=== PATIENT | male | born 1960 ===

== ENCOUNTER 2023-02-22 09:19 | Inpatient (IN) | payer OTHER ==
[2023-02-22] MEDS ORDERED: Morphine 4 MG/ML VIAL ONE (09:54)
[2023-02-22 10:04] LABS: #Eosinphils 0.2 thou/uL (0.0-0.7); #Neutrophils 4.6 thou/uL (1.40-6.50); %Basophils 0.5 % (0.0-1.0); %Eosinophils 2.5 % (0.0-10.0); %Lymphocytes 27.9 % (21.0-51.0); %Monocytes 12.3 % (0.0-10.0); %Neutrophils 56.6 % (42.0-75.0); Hematocrit 48.2 % (42.0-52.0); Mean Corpuscular HGB CONC 33.2 g/dL (32.0-36.0); Mean Corpuscular Hemoglobin 29.5 pg (27.0-31.0); Mean Corpuscular Volume 88.9 fl (78.0-98.0); Mean Platelet Volume 10.1 fL (7.4-10.4); Platelet Count 292 10x3/uL (130-400); RBC Distribution Width 13.2 % (11.5-14.5); Red Blood Cell (RBC) Count 5.42 mill/uL (4.70-6.10); White Blood Cell (WBC) Count 8.2 10x3/uL (4.8-10.8)
[2023-02-22 10:18] LABS: ALT (SGPT) 57 U/L (8-55); AST (SGOT) 29 U/L (5-34); Albumin 4.6 g/dL (3.4-4.8); Alkaline Phosphatase 53 U/L (40-110); Anion Gap 16 mmol/L (10-20); BUN (Urea Nitrogen) 16 mg/dL (8.4-25.7); Bilirubin, Total 0.3 mg/dL (0.2-1.2); Calc. Creatinine Clearance 0 mL/min (70-130); Calcium 10.1 mg/dL (7.8-10.44); Carbon Dioxide 21 mmol/L (23-31); Chloride 104 mmol/L (98-107); Estimated GFR 66; Globulin 3.1 g/dL (2.4-3.5); Glucose 87 mg/dL (80-115); Potassium 4.2 mmol/L (3.5-5.1); Protein, Total 7.7 g/dL (5.8-8.1); Sodium 137 mmol/L (136-145)
[2023-02-22 10:28] LABS: Troponin I 4.167 ng/mL (< 0.028)
[2023-02-22] MEDS ORDERED: Aspirin Chewable 81 MG TAB ONE (10:29)
[2023-02-22] MEDS ORDERED: Ondansetron ODT 4 MG TAB PO PRN (12:20)
[2023-02-22] MEDS ORDERED: Ondansetron PF 4 MG/2 ML Vial IVP PRN (12:20)
[2023-02-22] MEDS ORDERED: Acetaminophen 325 MG TAB PO PRN (12:20)
[2023-02-22] MEDS ORDERED: Communication Order-Pharmacy FS SCH ×2 (12:20→17:00)
[2023-02-22] MEDS ORDERED: Nitroglycerin 0.4 MG TAB (25 Tab Bottle) SL PRN (12:20)
[2023-02-22] MEDS ORDERED: Electrolyte Replacement Protocol 1 EACH FS SCH (12:30)
[2023-02-22] MEDS ORDERED: Morphine 2 MG/ML VIAL SLOW IVP PRN (12:48)
[2023-02-22 12:50] VITALS: BMI 29.8
[2023-02-22 13:19] LABS: Troponin I 3.905 ng/mL (< 0.028)
[2023-02-22 16:21] LABS: Troponin I 3.827 ng/mL (< 0.028)
[2023-02-22] MEDS ORDERED: Nitroglycerin 2% Ointment 1 INCH/1 GM Packet TOP PRN (19:20)
[2023-02-22] MEDS: Atorvastatin Calcium 40 MG TAB PO SCH (21:42)
[2023-02-23] MEDS ORDERED: Sodium Chloride 0.9% 500 ML IV SCH ×2 (00:01→16:15)
[2023-02-23 04:49] LABS: #Eosinphils 0.3 thou/uL (0.0-0.7); #Monocytes 0.9 thou/uL (0.11-0.59); #Neutrophils 4.4 thou/uL (1.40-6.50); %Basophils 0.5 % (0.0-1.0); %Eosinophils 3.6 % (0.0-10.0); %Lymphocytes 27.3 % (21.0-51.0); %Monocytes 11.7 % (0.0-10.0); %Neutrophils 56.4 % (42.0-75.0); Hemoglobin 15.6 g/dL (14.0-18.0); Mean Corpuscular HGB CONC 33.2 g/dL (32.0-36.0); Mean Corpuscular Hemoglobin 29.3 pg (27.0-31.0); Mean Corpuscular Volume 88.2 fl (78.0-98.0); Mean Platelet Volume 10.2 fL (7.4-10.4); Platelet Count 267 10x3/uL (130-400); RBC Distribution Width 13.2 % (11.5-14.5); Red Blood Cell (RBC) Count 5.33 mill/uL (4.70-6.10); White Blood Cell (WBC) Count 7.8 10x3/uL (4.8-10.8)
[2023-02-23 04:54] LABS: Hemoglobin A1c 5.4 % (4.0-6.0)
[2023-02-23 05:13] LABS: Anion Gap 12 mmol/L (10-20); BUN (Urea Nitrogen) 13 mg/dL (8.4-25.7); Calc. Creatinine Clearance 107 mL/min (70-130); Calcium 9.6 mg/dL (7.8-10.44); Carbon Dioxide 24 mmol/L (23-31); Chloride 106 mmol/L (98-107); Cholesterol 178 mg/dl (< 200 Desired); Estimated GFR 92; Glucose 92 mg/dL (80-115); HDL Cholesterol 45 mg/dL (>60 Neg Risk); LDL Cholesterol, Calculated 108 mg/dL; Magnesium 2.2 mg/dL (1.6-2.6); Sodium 138 mmol/L (136-145); Triglycerides 126 mg/dL (Less than 150)
[2023-02-23] MEDS ORDERED: Iopamidol 370 76% 100 ML VIAL ONE (10:21)
[2023-02-23] MEDS ORDERED: Lidocaine 1% (PF) 30 ML VIAL ONE (14:42)
[2023-02-23] MEDS ORDERED: Midazolam HCl 2 mg/2 ml Vial ONE (15:44)
[2023-02-23] MEDS ORDERED: fentaNYL 50 mcg/mL 1 mL Vial ONE (15:44)
[2023-02-23] MEDS ORDERED: Heparin 10,000 UNITS/ 10 ML VIAL ONE (15:46)
[2023-02-23] MEDS ORDERED: Adenosine 6 MG/2 ML VIAL ONE (15:46)
[2023-02-23] MEDS ORDERED: Acetaminophen/Codeine 30-300mg Tablet PO PRN (16:09)
[2023-02-23] MEDS ORDERED: Sodium Chloride 0.9% 200 ML IV PRN (16:09)
[2023-02-23] MEDS ORDERED: Communication Order-Pharmacy FS SCH (18:14)
[2023-02-23] MEDS ORDERED: Diazepam 5 MG TAB PO PRN (18:14)
[2023-02-23] MEDS: Atorvastatin Calcium 40 MG TAB PO SCH (20:36)
[2023-02-24 07:59] LABS: #Eosinphils 0.3 thou/uL (0.0-0.7); #Monocytes 0.7 thou/uL (0.11-0.59); #Neutrophils 5.6 thou/uL (1.40-6.50); %Basophils 0.4 % (0.0-1.0); %Lymphocytes 21.1 % (21.0-51.0); %Neutrophils 67.4 % (42.0-75.0); Hematocrit 47.6 % (42.0-52.0); Hemoglobin 15.4 g/dL (14.0-18.0); Mean Corpuscular HGB CONC 32.4 g/dL (32.0-36.0); Mean Corpuscular Hemoglobin 29.1 pg (27.0-31.0); Mean Platelet Volume 9.6 fL (7.4-10.4); Platelet Count 270 10x3/uL (130-400); RBC Distribution Width 13.2 % (11.5-14.5); Red Blood Cell (RBC) Count 5.29 mill/uL (4.70-6.10); White Blood Cell (WBC) Count 8.3 10x3/uL (4.8-10.8)
[2023-02-24 08:28] LABS: Anion Gap 12 mmol/L (10-20); BUN (Urea Nitrogen) 13 mg/dL (8.4-25.7); Calc. Creatinine Clearance 91 mL/min (70-130); Calcium 9.4 mg/dL (7.8-10.44); Carbon Dioxide 23 mmol/L (23-31); Chloride 108 mmol/L (98-107); Estimated GFR 76; Glucose 169 mg/dL (80-115); Potassium 3.6 mmol/L (3.5-5.1); Sodium 139 mmol/L (136-145)
[2023-02-24] MEDS: Atorvastatin Calcium 40 MG TAB PO SCH (20:13)
[2023-02-25 04:51] LABS: #Basophils 0.1 thou/uL (0.0-0.2); #Eosinphils 0.3 thou/uL (0.0-0.7); #Monocytes 1.2 thou/uL (0.11-0.59); #Neutrophils 5.8 thou/uL (1.40-6.50); %Basophils 0.5 % (0.0-1.0); %Lymphocytes 21.3 % (21.0-51.0); %Monocytes 12.6 % (0.0-10.0); %Neutrophils 62.3 % (42.0-75.0); Hematocrit 47.8 % (42.0-52.0); Hemoglobin 15.5 g/dL (14.0-18.0); Mean Corpuscular HGB CONC 32.4 g/dL (32.0-36.0); Mean Corpuscular Volume 89.5 fl (78.0-98.0); Platelet Count 278 10x3/uL (130-400); RBC Distribution Width 13.2 % (11.5-14.5); Red Blood Cell (RBC) Count 5.34 mill/uL (4.70-6.10); White Blood Cell (WBC) Count 9.2 10x3/uL (4.8-10.8)
[2023-02-25 05:13] LABS: Anion Gap 11 mmol/L (10-20); BUN (Urea Nitrogen) 14 mg/dL (8.4-25.7); Carbon Dioxide 25 mmol/L (23-31); Chloride 109 mmol/L (98-107); Potassium 4.2 mmol/L (3.5-5.1); Sodium 141 mmol/L (136-145)
[2023-02-25 05:14] LABS: Calc. Creatinine Clearance 95 mL/min (70-130); Calcium 9.8 mg/dL (7.8-10.44); Estimated GFR 80; Glucose 106 mg/dL (80-115)
[2023-02-25] MEDS ORDERED: PHENYLEPHRINE-NS 100 MCG/ML 10 ML SYRINGE ONE (07:48)
[2023-02-25] MEDS ORDERED: Albumin 5% 500 ML ONE (07:48)
[2023-02-25] MEDS ORDERED: EPINEPHrine 1 MG/ML AMP ONE (07:48)
[2023-02-25] MEDS ORDERED: Bupivacaine PF 0.5% 30 ML VIAL ONE (07:48)
[2023-02-25] MEDS ORDERED: Dexamethasone 4 mg/ml Vial ONE (07:48)
[2023-02-25] MEDS ORDERED: Heparin 10,000 UNITS/1 ML VIAL 30,000 UNITS in Sodium Chloride 0.9% 1,000 ML FS SCH (09:00)
[2023-02-25] MEDS ORDERED: Midazolam HCl 2 mg/2 ml Vial ONE ×2 (09:05→09:14)
[2023-02-25] MEDS ORDERED: Sodium Chloride 0.9% 100 ML ONE (09:13)
[2023-02-25] MEDS ORDERED: CEFAZOLIN 2 GM VIAL ONE (09:13)
[2023-02-25] MEDS ORDERED: Fentanyl 250 MCG/5 ML VIAL ONE ×2 (09:14→10:03)
[2023-02-25] MEDS ORDERED: Vecuronium 10 MG VIAL ONE (09:28)
[2023-02-25] MEDS ORDERED: Papaverine 60 MG/2 ML VIAL ONE (09:28)
[2023-02-25] MEDS ORDERED: Protamine Sulfate 250 MG/25 ML VIAL ONE (09:28)
[2023-02-25] MEDS ORDERED: Heparin 5,000 UNITS/ML VIAL ONE (09:28)
[2023-02-25] MEDS ORDERED: Potassium Chloride 60 MEQ/30 ML VIAL ONE (09:28)
[2023-02-25] MEDS ORDERED: Thrombin 5000 UNITS/5 ML VIAL ONE (09:28)
[2023-02-25] MEDS ORDERED: Lidocaine 2% PF 100 mg/5 ml Syringe ONE (09:28)
[2023-02-25] MEDS ORDERED: Aminocaproic Acid 5 GM/20 ML VIAL ONE (09:28)
[2023-02-25] MEDS ORDERED: Esmolol 100 MG/10 ML VIAL ONE (09:28)
[2023-02-25] MEDS ORDERED: Sodium Bicarb 50 MEQ/50 ML VIAL ONE (09:28)
[2023-02-25] MEDS ORDERED: Vancomycin 1 GM VIAL ONE (09:28)
[2023-02-25] MEDS ORDERED: PROPOFOL 200 MG/20 ML VIAL ONE (09:28)
[2023-02-25] MEDS ORDERED: Calcium Chloride 1 GM/10 ML Abboject SYRINGE ONE (09:28)
[2023-02-25] MEDS ORDERED: Magnesium 5 GM/10 ML VIAL ONE (09:28)
[2023-02-25] MEDS ORDERED: Cardioplegic Soln 1,000 ML BAG ONE (09:28)
[2023-02-25] MEDS ORDERED: Heparin 30,000 units/30 ml VIAL ONE (09:28)
[2023-02-25] MEDS ORDERED: Metoprolol Tartrate 5 MG/5 ML VIAL ONE (09:28)
[2023-02-25] MEDS ORDERED: CEFAZOLIN 2 GM in Sodium Chloride 0.9% 100 ML IVPB SCH (10:00)
[2023-02-25] MEDS ORDERED: Magnesium 2 GM/50 ML(in water) 2 GM in Premix Bag 1 BAG IVPB SCH (13:01)
[2023-02-25] MEDS ORDERED: Bisacodyl 10 MG SUPP PR PRN (13:01)
[2023-02-25] MEDS ORDERED: Nitroglycerin 50 MG/250 ML BOT 250 ML IVPB PRN (13:01)
[2023-02-25] MEDS ORDERED: traMADol HCl 50 MG TAB PO PRN ×2 (13:01)
[2023-02-25] MEDS ORDERED: Ipratropium/Albuterol 3 ML NEB NEB PRN (13:01)
[2023-02-25] MEDS ORDERED: Hetastarch 6% 500 ML 500 ML IVPB PRN (13:01)
[2023-02-25] MEDS ORDERED: fentaNYL 50 mcg/mL 1 mL Vial SLOW IVP PRN ×2 (13:01)
[2023-02-25] MEDS ORDERED: Promethazine HCl 25 MG/ML VIAL IM PRN (13:01)
[2023-02-25] MEDS ORDERED: Acetaminophen 325 MG TAB PO PRN (13:01)
[2023-02-25] MEDS ORDERED: NOREPINEPHRINE 8 MG/250 ML-D5W 250 ML IVPB PRN (13:01)
[2023-02-25] MEDS ORDERED: Bisacodyl 5 MG TAB PO PRN (13:01)
[2023-02-25] MEDS ORDERED: Mag-Al 1200 mg/1200 mg/30 ML UDCUP PO PRN (13:01)
[2023-02-25] MEDS ORDERED: Morphine 2 MG/ML VIAL SLOW IVP PRN (13:01)
[2023-02-25] MEDS ORDERED: Guaifenesin DM 100-10/5 ML UDCUP PO PRN (13:01)
[2023-02-25] MEDS ORDERED: Potassium Chloride 20 MEQ/100 ML PREMIX BAG IVPB PRN (13:01)
[2023-02-25 13:04] LABS: Actual Bicarbonate (HCO3a) 20.5 mEq/L (22-28); Base Excess (BEa) -5.3 mEq/L (-2.0 to +3.0); CO2 Tension 40.8 mmHg (35.0-45.0); Calcium, Ionized (arterial) 1.17 mmol/L (1.12-1.30); Carboxyhemoglobin (COHb) 0.5 gm% (0.0-3.0); Hematocrit-ABG 39 % (42.0-52.0); Hemoglobin (Hb) 13.2 g/dL (14.0-18.0); O2 Tension (PaO2), arterial 81.2 mmHg (> 80.0); Potassium - ABG Lab 3.95 mmol/L (3.70-5.30); pH, Arterial 7.318 (7.35-7.45)
[2023-02-25 13:05] LABS: Puncture Site Arterial Line
[2023-02-25] MEDS ORDERED: Morphine 4 MG/ML VIAL ONE (13:29)
[2023-02-25 13:36] LABS: Mean Corpuscular HGB CONC 32.6 g/dL (32.0-36.0); Mean Corpuscular Hemoglobin 29.5 pg (27.0-31.0); Mean Corpuscular Volume 90.6 fl (78.0-98.0); Mean Platelet Volume 10.3 fL (7.4-10.4); Platelet Count 192 10x3/uL (130-400); RBC Distribution Width 13.3 % (11.5-14.5); Red Blood Cell (RBC) Count 4.13 mill/uL (4.70-6.10)
[2023-02-25 13:38] LABS: Delete Auto Diff?? YES; Hematocrit 37.4 % (42.0-52.0); Hemoglobin 12.2 g/dL (14.0-18.0); Manual Diff?? YES; White Blood Cell (WBC) Count 26.1 10x3/uL (4.8-10.8)
[2023-02-25] MEDS ORDERED: Dextrose 50% Abboject 50 ML SYRINGE SLOW IVP PRN (13:45)
[2023-02-25] MEDS ORDERED: Dextrose 5% in Water 1,000 ML IV PRN (13:45)
[2023-02-25] MEDS ORDERED: Glucagon 1 MG/ML KIT SC PRN (13:45)
[2023-02-25 13:50] LABS: INR-International Normal Ratio 1.3; Prothrombin Time 16.9 sec (12.0-14.7)
[2023-02-25 13:52] LABS: PTT 26.8 sec (22.9-36.1)
[2023-02-25 14:00] LABS: Band 15 % (5-11); Burr Cells SLIGHT = 2-5 cells HPF (0-1); CellaVision Operator ID LAB.KB; Lymphocytes 3 % (21-51); Monocytes 1 % (0-10); Neutrophil 81 % (42-75); Platelet Adequacy Comment Platelets Normal; Polychromasia SLIGHT = 2-3 cells HPF (0-2); Total Cell Count 100
[2023-02-25 14:02] LABS: Anion Gap 12 mmol/L (10-20); BUN (Urea Nitrogen) 10 mg/dL (8.4-25.7); Calc. Creatinine Clearance 116 mL/min (70-130); Calcium 8.3 mg/dL (7.8-10.44); Carbon Dioxide 20 mmol/L (23-31); Chloride 112 mmol/L (98-107); Estimated GFR 98; Glucose 165 mg/dL (80-115); Potassium 3.9 mmol/L (3.5-5.1); Sodium 140 mmol/L (136-145)
[2023-02-25] MEDS ORDERED: HEXTEND 6% LR 500ML 500 ML IVPB PRN (14:15)
[2023-02-25 14:16] LABS: Actual Bicarbonate (HCO3a) 19.4 mEq/L (22-28); Base Excess (BEa) -5.5 mEq/L (-2.0 to +3.0); CO2 Tension 35.9 mmHg (35.0-45.0); O2 Tension (PaO2), arterial 82.4 mmHg (> 80.0)
[2023-02-25 14:17] LABS: ALV-art Gradient 157.925 mmHg (0-20); Calcium, Ionized (arterial) 1.15 mmol/L (1.12-1.30); Carboxyhemoglobin (COHb) 0.4 gm% (0.0-3.0); Hematocrit-ABG 43 % (42.0-52.0); Hemoglobin (Hb) 14.5 g/dL (14.0-18.0); Potassium - ABG Lab 3.79 mmol/L (3.70-5.30); Puncture Site Arterial Line
[2023-02-25] MEDS: D5 1/2 NS w/20 mEq KCL 1,000 ML IV SCH (14:36)
[2023-02-25] MEDS: CEFAZOLIN 2 GM in Sodium Chloride 0.9% 100 ML IVPB SCH (17:08)
[2023-02-25] MEDS: Ketorolac Tromethamine 30 MG/ML VIAL IVP SCH ×2 (17:08→23:24)
[2023-02-25] MEDS: Insulin Regular 300 UNITS/3 ML VIAL SC PRN ×2 (17:09→21:34)
[2023-02-25 20:07] LABS: Hemoglobin 13.8 g/dL (14.0-18.0)
[2023-02-25 20:18] LABS: Potassium 4.2 mmol/L (3.5-5.1)
[2023-02-25] MEDS ORDERED: Famotidine/PF 20 mg/2ml Vial SLOW IVP SCH (21:00)
[2023-02-25] MEDS: Atorvastatin Calcium 40 MG TAB PO SCH (21:24)
[2023-02-25] MEDS: hydrALAZINE 20 MG/ML VIAL SLOW IVP PRN (21:24)
[2023-02-25] MEDS: Ondansetron PF 4 MG/2 ML Vial IVP PRN (21:24)
[2023-02-26] MEDS: CEFAZOLIN 2 GM in Sodium Chloride 0.9% 100 ML IVPB SCH ×2 (01:09→08:30)
[2023-02-26] MEDS: hydrALAZINE 20 MG/ML VIAL SLOW IVP PRN (03:45)
[2023-02-26 04:09] LABS: #Monocytes 1.6 thou/uL (0.11-0.59); %Basophils 0.1 % (0.0-1.0); %Lymphocytes 8.6 % (21.0-51.0); %Monocytes 9.5 % (0.0-10.0); %Neutrophils 81.3 % (42.0-75.0); Hematocrit 39.7 % (42.0-52.0); Hemoglobin 13.1 g/dL (14.0-18.0); Mean Corpuscular Hemoglobin 29.3 pg (27.0-31.0); Mean Corpuscular Volume 88.8 fl (78.0-98.0); Platelet Count 188 10x3/uL (130-400); RBC Distribution Width 13.4 % (11.5-14.5); Red Blood Cell (RBC) Count 4.47 mill/uL (4.70-6.10); White Blood Cell (WBC) Count 17.2 10x3/uL (4.8-10.8)
[2023-02-26 04:34] LABS: Anion Gap 8 mmol/L (10-20); BUN (Urea Nitrogen) 9 mg/dL (8.4-25.7); Calc. Creatinine Clearance 116 mL/min (70-130); Calcium 8.2 mg/dL (7.8-10.44); Carbon Dioxide 25 mmol/L (23-31); Chloride 108 mmol/L (98-107); Estimated GFR 98; Glucose 121 mg/dL (80-115); Potassium 3.9 mmol/L (3.5-5.1); Sodium 137 mmol/L (136-145)
[2023-02-26] MEDS: Ketorolac Tromethamine 30 MG/ML VIAL IVP SCH ×4 (05:17→23:30)
[2023-02-26] MEDS: Ondansetron PF 4 MG/2 ML Vial IVP PRN (05:27)
[2023-02-26] MEDS: Aspirin 325 MG TAB PO SCH (08:30)
[2023-02-26] MEDS: Carvedilol 3.125 MG TAB PO SCH ×2 (08:30→18:21)
[2023-02-26] MEDS: Magnesium 2 GM/50 ML(in water) 2 GM in Premix Bag 1 BAG IVPB SCH (08:31)
[2023-02-26] MEDS ORDERED: Bisacodyl 10 MG SUPP PR PRN (16:31)
[2023-02-26] MEDS ORDERED: Mineral Oil ENEMA PR PRN (16:31)
[2023-02-26] MEDS ORDERED: Milk Of Magnesia 30 ML UDCUP PO PRN (16:31)
[2023-02-26] MEDS ORDERED: Mag-Al 1200 mg/1200 mg/30 ML UDCUP PO PRN (16:31)
[2023-02-26] MEDS ORDERED: Bisacodyl 5 MG TAB PO PRN (16:31)
[2023-02-26] MEDS ORDERED: Zolpidem Tartrate 5 MG TAB PO PRN (16:31)
[2023-02-26] MEDS ORDERED: Artificial Tear Sol 15 ML BOT EA EYE PRN (16:31)
[2023-02-26] MEDS ORDERED: diphenhydrAMINE 25 MG CAP PO PRN (16:31)
[2023-02-26] MEDS ORDERED: Guaifenesin DM 100-10/5 ML UDCUP PO PRN (16:31)
[2023-02-26] MEDS: D5 1/2 NS w/20 mEq KCL 1,000 ML IV SCH (16:35)
[2023-02-26] MEDS: Atorvastatin Calcium 40 MG TAB PO SCH (20:13)
[2023-02-27] MEDS: Ketorolac Tromethamine 30 MG/ML VIAL IVP SCH ×2 (04:39→14:21)
[2023-02-27] MEDS ORDERED: Potassium Chloride 10 MEQ TAB PO SCH (08:00)
[2023-02-27] MEDS ORDERED: Furosemide 40 MG TAB PO SCH (09:00)
[2023-02-27] MEDS ORDERED: Aspirin 325 mg Enteric Coated Tablet PO SCH (09:00)
[2023-02-27] MEDS: Aspirin 325 MG TAB PO SCH (09:06)
[2023-02-27] MEDS: Magnesium 2 GM/50 ML(in water) 2 GM in Premix Bag 1 BAG IVPB SCH (09:07)
[2023-02-27] MEDS: Carvedilol 3.125 MG TAB PO SCH ×2 (09:52→14:22)
[2023-02-27] MEDS ORDERED: Nitroglycerin 0.4 MG TAB (25 Tab Bottle) SL PRN (15:58)
[2023-02-27 16:15] VITALS: BP 99/58; TEMP 98.8
== END 2023-02-27 17:18 | disposition home or self-care (01) | DRG 233 ==
LOC: ERS 09:19 → 2NO 11:22 → CCU 02-25 07:46 → 2NO 02-26 23:07
PROVIDERS: ADMIT Internal Medicine; ATTEND Internal Medicine Critical Care Medicine
PROC: 4A023N7 Measurement of Cardiac Sampling and Pressure, Left Heart, Percutaneous Approach (ICD-10-PCS; 2023-02-23)
PROC: B2151ZZ Fluoroscopy of Left Heart using Low Osmolar Contrast (ICD-10-PCS; 2023-02-23)
PROC: B2111ZZ Fluoroscopy of Multiple Coronary Arteries using Low Osmolar Contrast (ICD-10-PCS; 2023-02-23)
PROC: 02100Z9 Bypass Coronary Artery, One Artery from Left Internal Mammary, Open Approach (ICD-10-PCS; principal; 2023-02-25)
PROC: 021109W Bypass Coronary Artery, Two Arteries from Aorta with Autologous Venous Tissue, Open Approach (ICD-10-PCS; 2023-02-25)
PROC: 06BP4ZZ Excision of Right Saphenous Vein, Percutaneous Endoscopic Approach (ICD-10-PCS; 2023-02-25)
PROC: 02L70CK Occlusion of Left Atrial Appendage with Extraluminal Device, Open Approach (ICD-10-PCS; 2023-02-25)
PROC: 4A133R1 Monitoring of Arterial Saturation, Peripheral, Percutaneous Approach (ICD-10-PCS; 2023-02-25)
PROC: 30233J1 Transfusion of Nonautologous Serum Albumin into Peripheral Vein, Percutaneous Approach (ICD-10-PCS; 2023-02-25)
DX: I21.4 Non-ST elevation (NSTEMI) myocardial infarction (principal); I50.21 Acute systolic (congestive) heart failure; E78.5 Hyperlipidemia, unspecified; E03.9 Hypothyroidism, unspecified; I25.10 Atherosclerotic heart disease of native coronary artery without angina pectoris; F17.200 Nicotine dependence, unspecified, uncomplicated; Z90.89 Acquired absence of other organs; Z98.890 Other specified postprocedural states; I11.0 Hypertensive heart disease with heart failure
CPT/HCPCS: 36415; 36416; 71045; 80048; 80053; 80061; 82805; 83036; 83735; 84443; 84484; 85025; 85610; 85730; 86850; 86900; 86901; 93005; 93010; 93306; 93458; 93798; 94002; 94150; 96361; 96374; 99152; A4311; C1751; C1769; J0153; J0171; J0360; J1100; J1644; J1650; J1815; J1885; J2001; J2250; J2270; J2272; J2405; J2440; J2704; J2720; J3010; J3370; J3475; J3480; J3490; J7030; P9045; Q9967; S0017; S0020; S0028